=== PATIENT | female | born 1995 | race Caucasian/White ===

== ENCOUNTER 2021-09-09 11:17 | Inpatient (IN) | payer OTHER ==
[~2021-09-09 11:17] MED LIST: Bupivacaine/Epinephrine 0.25% 30 ML VIAL ONE
[2021-09-09] MEDS ORDERED: Lidocaine 1% (PF) 30 ML VIAL SC PRN (12:01)
[2021-09-09] MEDS ORDERED: Diphenoxylate HCl/Atropine Tablet PO PRN ×2 (12:01)
[2021-09-09] MEDS ORDERED: Docusate 100 MG CAP PO PRN (12:01)
[2021-09-09] MEDS ORDERED: HYDROcodone/Acetaminophen 5/325 mg Tablet PO PRN (12:01)
[2021-09-09] MEDS ORDERED: hydrALAZINE 20 MG/ML VIAL SLOW IVP PRN ×2 (12:01→22:30)
[2021-09-09] MEDS ORDERED: Acetaminophen 500 MG TAB PO PRN (12:01)
[2021-09-09] MEDS ORDERED: Ibuprofen 800 MG TAB PO PRN (12:01)
[2021-09-09] MEDS ORDERED: Promethazine HCl 25 MG/ML VIAL IM PRN ×3 (12:01→22:30)
[2021-09-09] MEDS ORDERED: Ondansetron PF 4 MG/2 ML Vial IVP PRN ×3 (12:01→22:30)
[2021-09-09] MEDS ORDERED: Carboprost 250 MCG/ML AMP IM PRN (12:01)
[2021-09-09] MEDS ORDERED: Butorphanol Tartrate 1 MG/ML VIAL SLOW IVP PRN (12:01)
[2021-09-09] MEDS ORDERED: Misoprostol 200 MCG TAB PR PRN (12:01)
[2021-09-09] MEDS ORDERED: Methylergonovine 0.2 MG/ML VIAL IM PRN ×2 (12:01→22:30)
[2021-09-09] MEDS ORDERED: NS w/ Oxytocin 30 units 500 ML IV SCH ×3 (12:15→22:30)
[2021-09-09 12:19] VITALS: BMI 44.6
[2021-09-09 15:34] LABS: Hemoglobin 10.1 g/dL (12.0-15.5); Mean Corpuscular HGB CONC 31.5 g/dL (32.0-36.0); Mean Corpuscular Hemoglobin 24.3 pg (27.0-33.0); Mean Corpuscular Volume 77.2 fl (81.6-98.3); Mean Platelet Volume 10.7 fl (7.4-10.4); Platelet Count 236 10x3/uL (150-450); RBC Distribution Width 14.2 % (11.5-14.5); Red Blood Cell (RBC) Count 4.16 10x6/uL (3.90-5.03); White Blood Cell (WBC) Count 11.4 10x3/uL (3.5-10.5)
[2021-09-09 16:08] LABS: Hep B Surf Ag Non-Reactive S/CO (NonReactive)
[2021-09-09 16:09] LABS: Syphilis Antibody Nonreactive (Nonreactive); Syphilis Antibody Index 0.05 S/CO (<1.00 Non-Reactive)
[2021-09-09] MEDS ORDERED: Fentanyl 2 mcg/Bup 0.1% Cadd 100 ML ONE (16:09)
[2021-09-09 16:18] LABS: HBSAg Index 0.15 S/CO (0-0.99)
[2021-09-09] MEDS ORDERED: ePHEDrine Sulfate 50 MG/10 ML VIAL SLOW IVP PRN (17:05)
[2021-09-09] MEDS ORDERED: Acetaminophen 325 MG TAB PO PRN (17:05)
[2021-09-09] MEDS ORDERED: Moisturizing Cream (Eucerin) 113 GM JAR TOP PRN (17:05)
[2021-09-09] MEDS ORDERED: Lactated Ringer's 500 ML IV PRN (17:05)
[2021-09-09] MEDS ORDERED: diphenhydrAMINE 50 MG/ML VIAL IVP PRN (17:05)
[2021-09-09] MEDS ORDERED: Naloxone HCl 0.4 mg/ml Vial IVP PRN ×2 (17:05)
[2021-09-09] MEDS ORDERED: Communication Order-Pharmacy FS SCH (17:15)
[2021-09-09] MEDS ORDERED: Fentanyl 2 mcg/Bupivacaine 0.1% Cassette 100 ML EPIDURAL SCH (17:15)
[2021-09-09] MEDS: Lactated Ringer's 1,000 ML IV SCH ×2 (17:31→22:32)
[2021-09-09 18:08] LABS: SARS-CoV-2 NAA Rapid Test Not Detected (NotDetected)
[2021-09-09] MEDS ORDERED: Preparation H Ointment 28 GM TUBE PR PRN (22:30)
[2021-09-09] MEDS ORDERED: Zolpidem Tartrate 5 MG TAB PO PRN (22:30)
[2021-09-09] MEDS ORDERED: Lanolin Ointment 7 GM TUBE TOP PRN (22:30)
[2021-09-09] MEDS ORDERED: diphenhydrAMINE 25 MG CAP PO PRN (22:30)
[2021-09-09] MEDS ORDERED: Bisacodyl 10 MG SUPP PR PRN (22:30)
[2021-09-09] MEDS ORDERED: Milk Of Magnesia 30 ML UDCUP PO PRN (22:30)
[2021-09-09] MEDS ORDERED: Benzocaine-Menthol 82.5 ML CAN TOP PRN (22:30)
[2021-09-09] MEDS ORDERED: Measles/Mumps/Rubella 10 MCG/0.5 ML VIAL SC ONE (22:30)
[2021-09-09] MEDS ORDERED: Varicella virus, LIVE 0.5 ML VIAL SC ONE (22:30)
[2021-09-09] MEDS ORDERED: Boostrix 0.5 ML (Tdap) VIAL IM ONE (22:30)
[2021-09-09] MEDS ORDERED: Misoprostol 200 MCG TAB VAG PRN (22:30)
[2021-09-09] MEDS ORDERED: Ibuprofen 800 MG TAB PO SCH (22:45)
[2021-09-09] MEDS ORDERED: Docusate 100 MG CAP PO SCH (22:45)
[2021-09-09] MEDS: HYDROcodone/Acetaminophen 5/325 mg Tablet PO PRN (23:22)
[2021-09-10 05:22] LABS: Hemoglobin 10.2 g/dL (12.0-15.5); Mean Corpuscular HGB CONC 32.6 g/dL (32.0-36.0); Mean Corpuscular Hemoglobin 24.3 pg (27.0-33.0); Mean Corpuscular Volume 74.5 fl (81.6-98.3); Mean Platelet Volume 9.9 fl (7.4-10.4); Platelet Count 285 10x3/uL (150-450); RBC Distribution Width 14.3 % (11.5-14.5)
[2021-09-10] MEDS: Ibuprofen 800 MG TAB PO SCH ×3 (05:24→21:15)
[2021-09-10] MEDS: Lactated Ringer's 1,000 ML IV SCH ×3 (05:26→21:16)
[2021-09-10] MEDS ORDERED: Prenatal Vitamin 1 TAB PO SCH (09:00)
[2021-09-10] MEDS: Docusate 100 MG CAP PO SCH ×2 (09:17→21:16)
[2021-09-10] MEDS: HYDROcodone/Acetaminophen 5/325 mg Tablet PO PRN ×2 (09:18→15:50)
[2021-09-10] MEDS: Ferrous Sulfate 325 MG TAB PO SCH ×2 (09:19→17:00)
[2021-09-10 20:19] VITALS: BP 107/63; TEMP 97.6
== END 2021-09-10 21:35 | disposition home or self-care (01) | DRG 807 ==
LOC: CSHLD 11:17 → CSHPP 22:10
PROVIDERS: ADMIT Obstetrics & Gynecology; ATTEND Obstetrics & Gynecology
PROC: 10E0XZZ Delivery of Products of Conception, External Approach (ICD-10-PCS; principal; 2021-09-09)
DX: O80 Encounter for full-term uncomplicated delivery (principal); Z37.0 Single live birth; Z3A.38 38 weeks gestation of pregnancy
CPT/HCPCS: 36415; 51702; 85027; 86780; 86850; 86900; 86901; 87340; J2590; J7120; U0002

== ENCOUNTER 2024-07-22 19:33 | Emergency (ER) | payer OTHER ==
[2024-07-22 21:12] LABS: #Basophils 0.04 10x3/uL (0.0-0.2); #Eosinophils 0.06 10x3/uL (0.0-0.5); #Monocytes 0.69 10x3/uL (0.0-1.1); #Neutrophils 8.83 10x3/uL (1.5-8.4); %Basophils 0.3 % (0.0-2.0); %Eosinophils 0.5 % (0.0-6.0); %Lymphocytes 22.9 % (18.0-47.0); %Monocytes 5.5 % (0.0-10.0); %Neutrophils 70.3 % (40.0-75.0); Anion Gap 14 mmol/L (10-20); BUN (Urea Nitrogen) 13 mg/dL (7.0-18.7); Calc. Creatinine Clearance 0 mL/min (70-130); Calcium 9.4 mg/dL (7.8-10.44); Carbon Dioxide 21 mmol/L (22-29); Chloride 105 mmol/L (98-107); Estimated GFR 114; Glucose 85 mg/dL (70-105); Hematocrit 36.6 % (34.9-44.5); Hemoglobin 11.8 g/dL (12.0-15.5); Mean Corpuscular HGB CONC 32.2 g/dL (32.0-36.0); Mean Corpuscular Hemoglobin 24.9 pg (27.0-33.0); Mean Corpuscular Volume 77.2 fL (81.6-98.3); Mean Platelet Volume 10.2 fL (7.4-10.4); Platelet Count 215 10x3/uL (150-450); Potassium 3.8 mmol/L (3.5-5.1); RBC Distribution Width 16.2 % (11.5-14.5); Red Blood Cell (RBC) Count 4.74 10x6/uL (3.90-5.03); Sodium 136 mmol/L (136-145); White Blood Cell (WBC) Count 12.55 10x3/uL (3.5-10.5)
== END 2024-07-22 22:14 | disposition home or self-care (01) ==
LOC: CSHERS 19:33
DX: O99.891 Other specified diseases and conditions complicating pregnancy (principal); R00.2 Palpitations; Z3A.01 Less than 8 weeks gestation of pregnancy
CPT/HCPCS: 36415; 80048; 84443; 85025; 93005; 99285

== ENCOUNTER 2025-02-23 08:48 | Inpatient (IN) | payer BC, MEDICAID ==
[2025-02-23] MEDS ORDERED: Diphenoxylate HCl/Atropine Tablet PO PRN ×2 (09:16)
[2025-02-23] MEDS ORDERED: Ondansetron PF 4 MG/2 ML Vial IVP PRN ×3 (09:16→16:21)
[2025-02-23] MEDS ORDERED: Carboprost 250 MCG/ML AMP IM PRN (09:16)
[2025-02-23] MEDS ORDERED: Tranexamic Acid 1,000 MG/10 ML VIAL IVP PRN (09:16)
[2025-02-23] MEDS ORDERED: Ibuprofen 800 MG TAB PO PRN (09:16)
[2025-02-23] MEDS ORDERED: Lidocaine 1% (PF) 30 ML VIAL SC PRN (09:16)
[2025-02-23] MEDS ORDERED: Methylergonovine 0.2 MG/ML VIAL IM PRN ×2 (09:16→16:21)
[2025-02-23] MEDS ORDERED: hydrALAZINE 20 MG/ML VIAL SLOW IVP PRN ×2 (09:16→16:21)
[2025-02-23] MEDS ORDERED: Oxytocin 30 units/NS 500 ML 500 ML IV SCH ×2 (09:30)
[2025-02-23 09:40] VITALS: BMI 40.0
[2025-02-23 09:54] LABS: Hematocrit 33.6 % (34.9-44.5); Hemoglobin 10.8 g/dL (12.0-15.5); Mean Corpuscular Hemoglobin 24.8 pg (27.0-33.0); Mean Corpuscular Volume 77.2 fL (81.6-98.3); Platelet Count 260 10x3/uL (150-450); Red Blood Cell (RBC) Count 4.35 10x6/uL (3.90-5.03); White Blood Cell (WBC) Count 10.70 10x3/uL (3.5-10.5)
[2025-02-23 10:26] LABS: Hep B Surf Ag - L&D Non-Reactive S/CO (NonReactive)
[2025-02-23 10:28] LABS: Syphilis Antibody Index 0.10 S/CO (<1.00 Non-Reactive)
[2025-02-23] MEDS ORDERED: diphenhydrAMINE 50 MG/ML VIAL IVP PRN (10:31)
[2025-02-23] MEDS ORDERED: fentaNYL 2 mcg/Ropivacaine 0.2% Epidural 100 ML CADD EPIDURAL SCH (10:45)
[2025-02-23] MEDS ORDERED: Communication Order-Pharmacy FS SCH (10:45)
[2025-02-23] MEDS ORDERED: Bupivacaine/Epinephrine 0.25% 30 ML VIAL ONE (14:02)
[2025-02-23] MEDS: Oxytocin 30 units/NS 500 ML 500 ML IV SCH (14:55)
[2025-02-23] MEDS ORDERED: Milk Of Magnesia 30 ML UDCUP PO PRN (16:21)
[2025-02-23] MEDS ORDERED: diphenhydrAMINE 25 MG CAP PO PRN (16:21)
[2025-02-23] MEDS ORDERED: Lanolin Ointment 7 GM TUBE TOP PRN (16:21)
[2025-02-23] MEDS ORDERED: Bisacodyl 10 MG SUPP PR PRN (16:21)
[2025-02-23] MEDS ORDERED: Benzocaine-Menthol 82.5 ML CAN TOP PRN (16:21)
[2025-02-23] MEDS ORDERED: Preparation H Ointment 28 GM TUBE PR PRN (16:21)
[2025-02-23] MEDS: Ferrous Sulfate 325 MG TAB PO SCH (17:44)
[2025-02-23] MEDS: fentaNYL/Ropivacaine Epidural 100 ML ONE (17:44)
[2025-02-23] MEDS: Boostrix 0.5 ML (Tdap) VIAL (>/=7 yrs of age) IM ONE (17:44)
[2025-02-23] MEDS: Acetaminophen 325 MG TAB PO PRN (17:47)
[2025-02-23] MEDS: Ibuprofen 800 MG TAB PO SCH (21:00)
[2025-02-24 16:03] VITALS: BP 128/65; TEMP 98.6
== END 2025-02-24 16:00 | disposition home or self-care (01) | DRG 807 ==
LOC: CSHLD/OP 08:48 → CSHLD 09:49 → CSHPED 17:41
PROVIDERS: ADMIT Family Medicine; ATTEND Family Medicine
PROC: 10E0XZZ Delivery of Products of Conception, External Approach (ICD-10-PCS; principal; 2025-02-23)
PROC: 4A1HXCZ Monitoring of Products of Conception, Cardiac Rate, External Approach (ICD-10-PCS; 2025-02-23)
DX: O69.89X0 Labor and delivery complicated by other cord complications, not applicable or unspecified (principal); Z37.0 Single live birth; Z3A.38 38 weeks gestation of pregnancy
CPT/HCPCS: 51702; 85027; 86780; 86850; 86900; 86901; 87340; 99285; J2590